=== PATIENT | male | born 1950 | race Caucasian/White ===

== ENCOUNTER 2016-09-04 09:20 | Inpatient (IN) | payer BC, MEDICARE ==
[2016-09-01 13:05] LABS: HEMATOCRIT 43.2 % (40.0-51.0); HEMOGLOBIN 14.6 g/dL (13.6-17.8)
[2016-09-01 13:18] LABS: BUN (BLOOD UREA NITROGEN) 19 MG/DL (6-23); CALCIUM, SERUM 8.6 MG/DL (8.5-10.4); CHLORIDE, SERUM 105 MMOL/L (96-112); CO2 (CARBON DIOXIDE) 28 MMOL/L (24-34); CREATININE 1.02 MG/DL (0.70-1.30); GFR AFRICAN AMERICAN 88 ML/MIN (>=60); GFR NON AFRICAN AMERICAN 76 ML/MIN (>=60); GLUCOSE, SERUM 90 MG/DL (60-99); SODIUM, SERUM 143 MMOL/L (135-148)
[2016-09-01 13:19] LABS: ASCORBIC ACID (UR NOT ORDER) 20 (NEG); BILIRUBIN, URINE NEGATIVE (NEG); KETONE, URINE NEGATIVE (NEG)
--- NOTE | ~2016-09-04 | PREOPHP ---
PreOp History and Physical [address] [address] NAME: TREY CRYSTAL : 50 STATUS : DIS IN PAT#: [id number] AGE: 66 ADM/REG DATE : 09/04/16 MR#: [id number] REPORT SERV DATE: 10/10/16 DICTATED BY: KRISTA VILLA DATE: 10/10/16 REPORT STATUS : Draft TRANSCRIBED BY: JERRY DATE: 10/10/16 ATTENDING PHYSICIAN: Krista Villa MD. CHIEF COMPLAINT: BPH with obstruction. HISTORY OF PRESENT ILLNESS: Mr. Trey Crystal is a very pleasant 66-year-old male with history of BPH with obstruction. His prostate was measured in clinic and found to be greater than 100 g. He was counseled regarding his options. He is here for Robotic-assisted laparoscopic simple prostatectomy. PAST MEDICAL HISTORY: Notable for hypercholesterolemia, hypertension, and prior history of seizures. SURGICAL HISTORY: None. FAMILY HISTORY: No genitourinary cancer. SOCIAL HISTORY: He does not smoke, drink, or use illegal drugs. MEDICATIONS: Reviewed on the chart. ALLERGIES: NONE. REVIEW OF SYSTEMS: Review of systems was performed. Pertinent positives listed in the HPI. PHYSICAL EXAMINATION: GENERAL/VITAL SIGNS: Afebrile. Vital signs stable. No acute distress. He appears his stated age. HEENT: His head is normocephalic and atraumatic. LUNGS: Breathing nonlabored. He is not in respiratory distress. HEART: Pulse is regular in rate and rhythm. ABDOMEN: Soft, nontender, nondistended. He has an umbilical hernia. NEUROLOGIC: He is alert and oriented x3. LABORATORY DATA: No new labs. IMAGING: No new imaging. ASSESSMENT: BPH with obstruction due to a prostate greater than 100 g. He was counseled regarding his options. He has elected for Robotic-assisted laparoscopic simple prostatectomy. Risks and benefits discussed in detail. We will proceed as planned. KAROL/JERRY PreOp History and Physical [address] [place]. [address] NAME: TREY CRYSTAL : 50 STATUS : DIS IN PAT#: [id number] AGE: 66 ADM/REG DATE : 09/04/16 MR#: [id number] REPORT SERV DATE: 10/10/16 DICTATED BY: KRISTA VILLA DATE: 10/10/16 REPORT STATUS : Draft TRANSCRIBED BY: JERRY DATE: 10/10/16 Krista Villa MD / [id number] CC: MD Sharath French D.O.
--- NOTE | ~2016-09-04 | DS ---
Discharge Summary [facility] [address] [place]. [address] NAME: FREEMAN CRYSTAL : 50 STATUS : DIS IN PAT#: [id number] AGE: 66 ADM/REG DATE : 09/04/16 MR#: [id number] REPORT SERV DATE: 10/10/16 DICTATED BY: KRISTA VILLA DATE: 10/10/16 REPORT STATUS : Draft TRANSCRIBED BY: SHARRIL DATE: 10/10/16 ADMISSION DATE: 09/04/2016 DISCHARGE DATE: 09/08/2016 DISCHARGE DIAGNOSES: 1. Benign prostatic hypertrophy with obstruction, due to prostate greater than 100 g. 2. Umbilical hernia. 3. Ileus. PROCEDURES: 1. Robot-assisted laparoscopic simple prostatectomy. 2. Umbilical hernia repair. HOSPITAL COURSE: Mr. Crystal is a 66-year-old male, with BPH with obstruction. His prostate is greater 100 g. On the date of admission, he underwent the above-mentioned procedure. He tolerated the procedures well. There were no complications. For full operative details, see my operative report. Postoperatively, he was transferred to the recovery room then to the floor in stable condition. During his hospitalization his diet was gradually advanced to regular diet. He did have an ileus requiring a day of NG tube decompression, this resolved spontaneously. On the day of discharge, he was tolerating regular diet. His pain is well controlled on oral pain medication. His urine was clear. He was been discharged home with his Chopra catheter. DISCHARGE MEDICATIONS: Please see discharge medication reconciliation work sheet. DISCHARGE INSTRUCTIONS: Please see my preprinted discharge instructions. FOLLOWUP: Please follow up with me in one week for Chopra catheter removal. KAROL/JERRY Krista Villa MD / [id number] CC: MD Sharath French D.O.
--- NOTE | ~2016-09-04 | OP ---
Record Of Operation [facility] [address] [place]. [address] NAME: FREEMAN CRYSTAL : 50 STATUS : ADM IN PAT#: [id number] AGE: 66 ADM/REG DATE : 09/04/16 MR#: [id number] REPORT SERV DATE: 09/05/16 DICTATED BY: KRISTA VILLA DATE: 09/05/16 REPORT STATUS : Draft TRANSCRIBED BY: MODL DATE: 09/05/16 DATE OF PROCEDURE: 09/04/2016 SURGEON: Krista Villa M.D. TITLE OF OPERATION: 1. Robotic-assisted laparoscopic simple prostatectomy. 2. Umbilical hernia repair. PREOPERATIVE DIAGNOSIS: Benign prostatic hypertrophy, with obstruction, and urinary retention. POSTOPERATIVE DIAGNOSIS: Benign prostatic hypertrophy, with obstruction, urinary retention, and umbilical hernia. INDICATIONS: Mr. Crystal is a 66-year-old male with BPH. His PSA has been normal. He has history of urinary retention. His prostate volume is greater 100 g. He is here for robotic assisted laparoscopic simple prostatectomy. ANESTHESIA: General. COMPLICATIONS: None. IMPLANTS: A 24-Gibraltarian 3-way Chopra catheter. SPECIMEN: 1. Prostatic adenoma. 2. Contents of umbilical hernia. NARRATIVE: The patient was brought to the operating room, identified by his wristband. General anesthesia was induced and Ancef was given for preoperative antibiotics. He was placed in dorsal lithotomy position, prepped and draped in sterile fashion. A 16-Gibraltarian Chopra catheter was placed into his bladder. The balloon was inflated to 15 mL of sterile water. A Veress needle was placed in a supraumbilical position and the abdomen was insufflated to a pressure of 15 mmHg. A supraumbilical incision was made and a 12 mm port was placed into the abdomen under direct vision. Abdomen was inspected. There was no adhesions or abnormalities. A standard Si port placement was performed with two 8 mm ports on left side of the body and one on the right side of the body. A second 12 mm port was placed in the right lower quadrant and a 5 mm port was placed in the right upper quadrant for household assistant port. The patient then placed in Trendelenburg and the robot was docked. The bladder was then dropped off the anterior abdominal wall using electrocautery. The prostate and pubic bone were exposed. The fibrofatty tissue overlying the prostate was removed with bipolar cautery and scissors. A transverse cystotomy was then made about a centimeter proximal to the bladder neck. This disclosed a large intravesical adenoma. A 2-0 Vicryl suture was placed through the adenoma as a retracting suture. Next, the mucosa above the trigone was scarred on the adenoma. Care taken not to injure the ureteral orifices. This Record Of Operation [place] [id number] [facility] [place]. [address] NAME: FREEMAN CRYSTAL : 50 STATUS : ADM IN PAT#: [id number] AGE: 66 ADM/REG DATE : 09/04/16 MR#: [id number] REPORT SERV DATE: 09/05/16 DICTATED BY: KRISTA VILLA DATE: 09/05/16 REPORT STATUS : Draft TRANSCRIBED BY: JERRY DATE: 09/05/16 dissection was carried deeply through the detrusor fibers onto the prostatic adenoma. This was carried laterally to the junction of the capsule of the prostate in the bladder. Next, a plane was made between the adenoma and the prostatic capsule laterally and superiorly. The adenoma was then sequentially dissected free from all surrounding structures including the capsule laterally and superiorly in the transitional zone of the prostate posteriorly. Finally, the urethra was identified and sharply transected. The adenoma was then free of all attachments and removed from the body and placed into EndoCatch bag. A 3-0 V-Loc suture was used to over sew bleeders within the prostatic fossa, as well as the mucosa of the bladder into the prostatic fossa. A second 3-0 V-Loc suture was then used to oversew the dorsal venous penetrators along the capsule in a U shape configuration. A 24-Gibraltarian 3-way Chopra catheter was then placed into the bladder with robotic assistance. The cystotomy was closed in two layers. The first layer was a mucosal layer using a 3-0 V-Loc suture, second layer was a seromuscular layer using a 2-0 V-Loc suture. The bladder was irrigated and it found to be watertight. The balloon was inflated with 40 mL of sterile water. The catheter was placed on traction and CBI was initiated. The robot was then undocked. The 12 mm household assistant port was then closed with 0 Vicryl suture using a Marco Antonio device. A #10 round MELISSA drain was placed through the left most lateral robotic port for drain. The robotic ports and all other ports were removed sequentially. The supraumbilical incision was enlarged in a periumbilical fashion. The patient had an umbilical hernia. The prostate was removed via this incision. The subcu tissues were divided off the fascia using electrocautery, a very small hernia was then encountered. The contents of the hernia and hernia sac were removed and sent to pathology. Next, the prior fascial incision and the hernia defect were joined by dividing the intervening fascia. The fascia was then closed in an interrupted fashion using 0 Monocryl suture. The wound was irrigated clear. The subcutaneous tissues were closed with 3-0 Vicryl suture, skin was closed with 4-0 Monocryl suture running in a subcuticular fashion. Dermabond dressing was placed. The patient was awoken from anesthesia and transferred to the recovery room in stable condition. There were no complications. The urine was clear upon leaving the operating room. KAROL/SHARRIL Krista Villa MD / [id number] CC: MD Sharath French D.O.
[~2016-09-04 09:20] MED LIST: FLOMAX4 PO; LAMICTAL10 PO; LIPITOR80 MG PO; TEKTUR150 PO
[2016-09-04 16:05] LABS: CHLORIDE, SERUM 104 MMOL/L (96-112); CO2 (CARBON DIOXIDE) 27 MMOL/L (24-34); CREATININE 1.05 MG/DL (0.70-1.30); GFR AFRICAN AMERICAN 85 ML/MIN (>=60); GFR NON AFRICAN AMERICAN 74 ML/MIN (>=60); POTASSIUM, SERUM 3.9 MMOL/L (3.5-5.3); SODIUM, SERUM 142 MMOL/L (135-148)
[2016-09-04 16:08] LABS: BUN (BLOOD UREA NITROGEN) 12 MG/DL (6-23); GLUCOSE, SERUM 128 MG/DL (60-99)
[2016-09-04 16:15] LABS: BASOPHILS 0.2 %; BASOPHILS ABSOLUTE 0.01 10/3/uL (0.0-0.16); EOSINOPHILS 0.2 %; EOSINOPHILS ABSOLUTE 0.01 10/3/uL (0.0-0.53); HEMOGLOBIN 13.3 g/dL (13.6-17.8); IMMATURE GRANULOCYTES 0.2 %; IMMATURE GRANULOCYTES ABSOLUTE 0.01 10/3/uL (0.0-0.11); LYMPHOCYTES 11.1 %; LYMPHOCYTES ABSOLUTE 0.68 10/3/uL (0.67-4.30); MEAN CORPUS HGB CONC 34.5 g/dL (32.0-36.0); MEAN CORPUSCULAR HEMOGLOB 30.2 pg (26.0-34.0); MEAN CORPUSCULAR VOLUME 87.7 fL (80-100); MEAN PLATELET VOLUME 10.4 fL (9.2-13.0); MONOCYTES 2.1 %; MONOCYTES ABSOLUTE 0.13 10/3/uL (0.21-1.20); NEUTROPHILS 86.2 %; NEUTROPHILS ABSOLUTE 5.27 10/3/uL (2.02-8.40); PLATELET COUNT 164 10/3/uL (150-400); RBC DISTRIBUTION WIDTH 12.8 % (12.0-16.0); WHITE BLOOD CELLS 6.1 10/3/uL (4.5-10.5)
[2016-09-04 16:21] LABS: HEMATOCRIT 38.6 % (40.0-51.0); MANUAL DIFF NO %
[2016-09-05 06:44] LABS: BASOPHILS 0.1 %; BASOPHILS ABSOLUTE 0.01 10/3/uL (0.0-0.16); EOSINOPHILS 0.5 %; EOSINOPHILS ABSOLUTE 0.06 10/3/uL (0.0-0.53); HEMATOCRIT 40.4 % (40.0-51.0); HEMOGLOBIN 13.8 g/dL (13.6-17.8); IMMATURE GRANULOCYTES 0.2 %; IMMATURE GRANULOCYTES ABSOLUTE 0.02 10/3/uL (0.0-0.11); LYMPHOCYTES 15.6 %; LYMPHOCYTES ABSOLUTE 1.72 10/3/uL (0.67-4.30); MEAN CORPUS HGB CONC 34.2 g/dL (32.0-36.0); MEAN CORPUSCULAR HEMOGLOB 30.1 pg (26.0-34.0); MEAN PLATELET VOLUME 10.3 fL (9.2-13.0); MONOCYTES 10.4 %; MONOCYTES ABSOLUTE 1.15 10/3/uL (0.21-1.20); NEUTROPHILS 73.2 %; NEUTROPHILS ABSOLUTE 8.08 10/3/uL (2.02-8.40); PLATELET COUNT 190 10/3/uL (150-400); RED CELL COUNT 4.59 10/6/uL (4.7-6.1)
[2016-09-05 06:50] LABS: MANUAL DIFF NO %
[2016-09-05 06:52] LABS: BUN (BLOOD UREA NITROGEN) 10 MG/DL (6-23); CALCIUM, SERUM 8.2 MG/DL (8.5-10.4); CHLORIDE, SERUM 104 MMOL/L (96-112); CO2 (CARBON DIOXIDE) 28 MMOL/L (24-34); GFR AFRICAN AMERICAN 90 ML/MIN (>=60); GFR NON AFRICAN AMERICAN 78 ML/MIN (>=60); GLUCOSE, SERUM 122 MG/DL (60-99); POTASSIUM, SERUM 4.1 MMOL/L (3.5-5.3); SODIUM, SERUM 143 MMOL/L (135-148)
[2016-09-06 05:22] LABS: BASOPHILS 0.1 %; BASOPHILS ABSOLUTE 0.01 10/3/uL (0.0-0.16); EOSINOPHILS 2.3 %; HEMATOCRIT 36.7 % (40.0-51.0); HEMOGLOBIN 12.5 g/dL (13.6-17.8); IMMATURE GRANULOCYTES 0.1 %; IMMATURE GRANULOCYTES ABSOLUTE 0.01 10/3/uL (0.0-0.11); LYMPHOCYTES 22.4 %; LYMPHOCYTES ABSOLUTE 1.97 10/3/uL (0.67-4.30); MEAN CORPUS HGB CONC 34.1 g/dL (32.0-36.0); MEAN CORPUSCULAR HEMOGLOB 30.3 pg (26.0-34.0); MEAN CORPUSCULAR VOLUME 88.9 fL (80-100); MEAN PLATELET VOLUME 10.1 fL (9.2-13.0); MONOCYTES 13.9 %; MONOCYTES ABSOLUTE 1.22 10/3/uL (0.21-1.20); NEUTROPHILS 61.2 %; NEUTROPHILS ABSOLUTE 5.37 10/3/uL (2.02-8.40); PLATELET COUNT 184 10/3/uL (150-400); RBC DISTRIBUTION WIDTH 13.4 % (12.0-16.0); RED CELL COUNT 4.13 10/6/uL (4.7-6.1); WHITE BLOOD CELLS 8.8 10/3/uL (4.5-10.5)
[2016-09-06 05:25] LABS: MANUAL DIFF NO %
[2016-09-06 05:38] LABS: BUN (BLOOD UREA NITROGEN) 9 MG/DL (6-23); CALCIUM, SERUM 8.4 MG/DL (8.5-10.4); CHLORIDE, SERUM 104 MMOL/L (96-112); CO2 (CARBON DIOXIDE) 28 MMOL/L (24-34); GFR AFRICAN AMERICAN 103 ML/MIN (>=60); GFR NON AFRICAN AMERICAN 89 ML/MIN (>=60); GLUCOSE, SERUM 111 MG/DL (60-99); SODIUM, SERUM 141 MMOL/L (135-148)
[2016-09-08] MEDS ORDERED: PCET PO (08:49)
[2016-09-08] MEDS ORDERED: DSS PO (08:50)
[2016-09-08] MEDS ORDERED: REG5 PO (08:50)
[2016-09-08] MEDS ORDERED: MACROBID PO (08:51)
== END 2016-09-08 16:40 | disposition home or self-care (01) | DRG 717 ==
LOC: SDC/OF 09:20 → PACU 15:10 → 4SO 17:20
PROVIDERS: Urology
PROC: 0WQF0ZZ Repair Abdominal Wall, Open Approach (ICD-10-PCS; principal; 2016-09-04 10:30)
PROC: 8E0W4CZ Robotic Assisted Procedure of Trunk Region, Percutaneous Endoscopic Approach (ICD-10-PCS; principal; 2016-09-04 10:30)
PROC: 0VB04ZZ Excision of Prostate, Percutaneous Endoscopic Approach (ICD-10-PCS; principal; 2016-09-04 10:30)
DX: N40.1 Benign prostatic hyperplasia with lower urinary tract symptoms (principal); N13.8 Other obstructive and reflux uropathy; K56.7 Ileus, unspecified; I10 Essential (primary) hypertension; R33.8 Other retention of urine; K42.9 Umbilical hernia without obstruction or gangrene; G40.909 Epilepsy, unspecified, not intractable, without status epilepticus
CPT/HCPCS: 36415; 74000; 74020; 80048; 81001; 82570; 85014; 85018; 85025; 86850; 86900; 86901; 87086; 88302; 88307; 93005; A9270-GY; J0690; J1170; J1580; J2250; J2405; J2710; J2765; J2795; J3010